=== PATIENT | female | born 1945 | race Caucasian/White ===

== ENCOUNTER → 2017-05-05 | Outpatient (CLI) | payer OTHER ==
[~2017-05-05] MED LIST: ASPCH81X PO; HYDR5TAB27 PO; LISI5TAB3 PO; METO25TA56 PO; MULT-190 PO; SIMV10TA2 PO; SYN100 PO
== END | disposition home or self-care (01) ==
LOC: C.RDSM 09:19
PROVIDERS: ATTEND Physical Medicine & Rehabilitation Sports Medicine
DX: Z96.649 Presence of unspecified artificial hip joint (principal); Z96.659 Presence of unspecified artificial knee joint